=== PATIENT | male | born 1965 | race Caucasian/White ===

== ENCOUNTER 2021-12-09 14:36 | Emergency (ER) | payer OTHER, SELFPAY ==
[2021-12-09] VITALS (8 sets, daily range): BP systolic 147–182; BP diastolic 89–111; PULSE 81–124; RESP 16–29; TEMP 36.4; O2SAT 97–98
--- NOTE | ~2021-12-09 | CT_ITS ---
EXAMINATION: CT lumbar spine wo con DATE: 12/09/2021 16:33 INDICATION: Back pain radiating to the leg. TECHNIQUE: Computed tomography (CT) of the lumbar spine was performed without intravenous contrast. T he dose-length product was 681.46 mGy-cm. Automated exposure control and iterative reconstruction hannah hnique were employed. COMPARISON: CT dated 07/08/2009 FINDINGS: There is normal anatomic alignment. There is disc narrowing and endplate hypertrophy at L5- S1 with vacuum phenomena. Remainder of the disc heights are preserved. There is mild facet hypertroph y at L5-S1 on the left no acute fracture or traumatic malalignment. No evidence for spondylolisthesis or spondylolysis. There is mild left neural foraminal narrowing at L5-S1 secondary to uncinate hyper trophy. No significant paraspinal soft tissue abnormality. IMPRESSION: 1. Mild-moderate spondylosis at L5-S1 with left neural foraminal narrowing. 2: No acute abnormality of the lumbar spine. Reviewed, dictated and finalized at location A.
--- NOTE | ~2021-12-09 | XR_ITS ---
EXAMINATION: XR chest 1V 12/09/2021 18:09 INDICATION: Leukocytosis. PROCEDURE: AP portable chest COMPARISON: 10/16/2018 FINDINGS: Subtle infiltrates right midlung, atelectasis versus pneumonia. The cardiomediastinal silho uette is within normal limits. There are no pleural effusions. There is no pneumothorax suspected. IMPRESSION: 1: Subtle infiltrates right midlung may represent atelectasis or developing pneumonia. Reviewed, dictated and finalized at location A. IMPRESSION: 1: Subtle infiltrates right midlung may represent atelectasis or developing pn eumonia.
--- NOTE | ~2021-12-09 | MR_ITS ---
EXAMINATION: MR lumbar spine wo/w con DATE: 12/09/2021 17:59 INDICATION: Low back injury. Pain radiating down the right lower limb. Urinary incontinence. TECHNIQUE: Magnetic resonance imaging (MRI) of the lumbar spine was performed without and with 20 mL MultiHance intravenous contrast. COMPARISON: CT lumbar spine 12/09/2021 FINDINGS: There is 3 mm retrolisthesis of L5 on S1. Vertebral body heights are normal. There is moder ately decreased disc height at L4-L5 and severely decreased disc height at L5-S1 with endplate remode ling. The distal spinal cord signal intensity is normal. The conus medullaris is at T12. The followin g disc levels are specifically discussed: L1-L2: The disc does not extend beyond the endplate margin. There is no facet joint osteoarthritis. T here is no neural foraminal stenosis. There is no central canal stenosis. L2-L3: There is a right foraminal protrusion. There is no facet joint osteoarthritis. There is mild r ight neural foraminal stenosis. There is no central canal stenosis. L3-L4: The disc does not extend beyond the endplate margin. There is mild bilateral facet joint osteo arthritis. There is no neural foraminal stenosis. There is no central canal stenosis. L4-L5: The disc is bulging with superimposed right subarticular zone protrusion with mass effect on t he right L5 nerve root. There is mild bilateral facet joint osteoarthritis. There is mild bilateral n eural foraminal stenosis. There is mild central canal stenosis. There is moderate stenosis of right l ateral recess. L5-S1: The disc is bulging with superimposed left central and subarticular zone extrusion with mass e ffect on left S1 nerve root in left lateral recess. There is moderate bilateral facet joint osteoarth ritis. There is mild right and moderate left neural foraminal stenosis. There is mild central canal s tenosis. There is severe stenosis of left lateral recess. IMPRESSION: 1. Severe lower lumbar spondylosis. Reviewed, dictated and finalized at location A.
[2021-12-09 16:25] LABS: Hematocrit 45.6 % (42.0-52.0); Hemoglobin 15.5 g/dL (14.0-18.0); Mean Corpuscular Hemoglobin 29.5 pg (26-34); Mean Corpuscular Volume 86.7 fl (80-100); Mean Platelet Volume 10.6 fl (7.4-10.4); Platelet Count Result 379 k/mm3 (150-375); Red Blood Count 5.26 M/mm3 (4.6-6.20); Red Cell Distribution Width 13.7 % (11.5-14.5); White Blood Count 20.9 K/mm3 (4.5-10.0)
[2021-12-09 16:26] LABS: Appearance Urine Clear (Clear); Bilirubin Urine Negative (Negative); Blood Urine Negative (Negative); Color Urine Yellow (Yellow); Glucose Urine UA 2+ mg/dL (Negative); Ketones Urine Negative (Negative); Leukocyte Esterase Ur Negative LEU/UL (Negative); Nitrate Urine Negative (Negative); Protein Urine Negative (Negative); Specific Grav Ur 1.025 (1.001-1.035); Urobilinogen Urine 0.2 mg/dL (<2.0); pH Urine 5.5 (5.0-9.0)
--- NOTE | 2021-12-09 16:29 | PC.NURSE ---
19 ML noted post void residual bladder scan
[2021-12-09 16:33] LABS: Mucus Urine Rare /lpf; RBC Urine 0-2 /hpf (0-2); WBC Urine 0-3 /hpf
[2021-12-09 16:40] LABS: Alanine Aminotransferase 22 U/L (6-50); Albumin Level 4.5 g/dL (3.5-5.1); Alkaline Phosphatase 119 U/L (38-126); Anion Gap 8 mmol/L (8-16); Aspartate Amino Transferase 21 U/L (17-59); Bilirubin,Total 0.4 mg/dL (0.2-1.3); Blood Urea Nitrogen 11 mg/dL (9-20); Carbon Dioxide 26 mmol/L (22-30); Chloride 101 mmol/L (98-107); Estimated CRCL calculation 121 ml/min; Estimated Glomerular Filt Rate > 60; Glucose 269 mg/dL (65-110); Potassium 3.8 mmol/L (3.4-5.0); Sodium 135 mmol/L (137-145)
[2021-12-09 16:43] LABS: Add Urine Microscopic? YES
[2021-12-09 16:58] LABS: Band Neutrophils Percent 2 % (0-6); Lymphocytes Absolute Manual 4.59 K/mm3 (1.1-4.5); Monocytes Absolute Manual 0.41 K/mm3 (0.1-0.90); Monocytes Percent Manual 2 % (3-9); Neutrophils Absolute Manual 15.88 K/mm3 (1.3-6.7); Neutrophils Percent Manual 74 % (46-73); Total Cells Counted 100
--- NOTE | 2021-12-09 17:42 | PC.NURSE ---
PT IN MRI FOR IMAGING
[2021-12-09 18:59] LABS: Lactic Acid Reflex 1.1 mmol/L (0.7-2.0)
--- NOTE | 2021-12-09 19:05 | ED.BACK ---
HPI - Back Pain/Injury General Chief Complaint: Back Pain/Injury Stated Complaint: spinal injury and loss of bladder control Time Seen by Provider: 12/09/21 15:48 Source: patient and RN notes reviewed Mode of arrival: ambulatory Limitations: no limitations History of Present Illness HPI Narrative: This is a 56 year old male who presents for evaluation of back pain. He states he suffered a back injury at work in July. He states he was doing some heavy lifting and he felt a pop in his back. He has been having back pain that radiates down his right leg. He has been having some tingling in his right leg since July. He reports having increased urinary hesitancy since July. He states he is having to use a cane walk due to mild right leg weakness. He reports on Tuesday he had urge to urinate and when he got to restroom his pants were wet. He reports he had this episode of urinary incontinence. He has been having increased urinary hesitancy since July. He states he called his surgeon, Dr. Hitesh Ash today and he was told to come to ER. MD elicited complaint: back pain Related Data Allergies Allergy/AdvReac Type Severity Reaction Status Date / Time tramadol Allergy Itching Verified 12/09/21 19:27 Review of Systems Review of Systems: All systems reviewed & are unremarkable except as noted in HPI and below Constitutional: Constitutional: Denies chills and Denies fatigue ENT: Denies sore throat Cardiovascular: Cardiovascular: Denies chest pain Respiratory: Respiratory: Denies chest congestion and Denies cough Gastrointestinal: Gastrointestinal: Denies abdominal pain, Denies nausea and Denies vomiting Genitourinary: Genitourinary: Denies hematuria, Reports oliguria and Reports urinary incontinence Musculoskeletal: Musculoskeletal: Reports back pain and Reports muscle cramps Neurologic: Reports focal weakness and Reports numbness PMFSH Past Medical History Medical History (Updated 12/09/21 @ 20:19 by Adeline Gonzales MD) Diabetes mellitus Hypertension Surgical History Surgical History (Updated 12/09/21 @ 19:23 by Adeline Gonzales MD) Previous back surgery Family History Family History (Updated 12/26/15 @ 23:21 by DOCTOR UNKNOWN) Sibling Patient's sister is in good health Family history of diabetes mellitus in first degree relative Mother Family history of malignant neoplasm of brain Social History Social History Smoking status: Heavy tobacco smoker Alcohol intake: never Exam Const: General: alert Nutritional Appearance: well nourished Orientation/consciousness: patient oriented x3 HENMT: Head: normal to inspection Eyes: Pupils: Equal, round and reactive pupils present EOM: EOMs intact bilaterally Resp: Effort & Inspection: normal respiratory effort Auscultation: clear to auscultation bilaterally Cardio: Rate: regular rate Rhythm: regular rhythm Heart sounds: no murmurs GI: Inspection: non-distended Auscultation: normal bowel sounds Back/Spine/Pelvis: Thoracic/Lumbar Spine: lumbar spinal tenderness Skin: General skin exam: normal color Rashes: no rashes Neuro: General: patient oriented x3, moves all extremities and CN's II-XI intact bilaterally Course Reevaluation(s) Reevaluation #1: PAient reports urinary incontinence, right leg weakness and back pain. MRI was done emergently to rule out epidural abscess, cauda equina. MRI did not show acute surgical issue. I spoke with patient's orthopedic spine provider. Glen Akbar. PAtient not found to have signs of cauda equina on MRI . He does have bulging disc. Patient was found to have leukocytosis likely due to pneumonia so he will be placed on antibiotics. Date: 12/09/21 Time: 20:16 Vital Signs Vital signs: Vital Signs Temperature 97.5 F L 12/09/21 14:40 Pulse Rate 124 H 12/09/21 14:40 Respiratory Rate 16 12/09/21 14:40 Blood Pressure 182/111 H 12/09/21 14:40 Pulse Oximetry 98 0
[2021-12-09 19:26] LABS: SARS-CoV-2 RNA PCR Negative
[2021-12-09] MEDS: HYDROmorphone HCL INJ (*CRX) 1 MG/ML SYR IV PUSH (19:30)
[2021-12-09] MEDS: ONDANSETRON INJ 4 MG/2 ML VIAL IV PUSH (19:30)
== END 2021-12-09 20:35 | disposition home or self-care (01) ==
PROVIDERS: Emergency Provider General Practice
DX: M54.16 Radiculopathy, lumbar region (principal); J18.9 Pneumonia, unspecified organism; E11.9 Type 2 diabetes mellitus without complications; I10 Essential (primary) hypertension; Z20.822 Contact with and (suspected) exposure to COVID-19
CPT/HCPCS: 36415; 71045; 72131; 72158; 80053; 81001; 83605; 85025; 96374; 96375; 99284; A9577; C9803; J1170; J2405; U0003; U0005